=== PATIENT | female | born 1950 | race Caucasian/White ===

== ENCOUNTER → 2020-07-07 07:42 | Outpatient (CLI) | payer MEDICARE, MEDICAID ==
[2020-04-26 09:24] VITALS: BMI 44.5
[~2020-07-07 07:42] MED LIST: BIOFLEX TABLET1 EACH PO; CARAFATE1 G PO; CENTRUM SILVER1 EAC3 PO; COMBIVENT RESPIM4 GM INH; DEXEDRINE15 MG PO; FUROSEMIDE40 MG PO; HYDROCODON-ACE1 EA10 PO; K-DUR20 MEQ PO; MELATONIN10 M1 PO; MERIBIN5 MG PO; NUVIGIL250 MG PO; PAXIL40 MG PO; PEPCID40 MG PO; PROTONIX40 MG PO; ZANAFLEX4 MG PO; ZYPREXA20 MG PO
[2020-07-07 08:21] LABS: AMYLASE - SERUM 48 U/L (25-115); LIPASE 74 U/L (73-393)
== END | disposition home or self-care (01) ==
LOC: D.US 07:42 → D.OPS 09:30
PROVIDERS: ATTEND Internal Medicine Gastroenterology
DX: K21.9 Gastro-esophageal reflux disease without esophagitis (principal); R11.0 Nausea; R13.10 Dysphagia, unspecified; R10.84 Generalized abdominal pain